=== PATIENT | female | born 1960 | race Caucasian/White ===

== ENCOUNTER → 2023-12-14 12:43 | Outpatient (REF) | payer BC, SELFPAY | LOC: HWRAD 12:43 | PROVIDERS: ATTENDING PHYSICIAN Physician Assistant; REFERRING PHYSICIAN Orthopaedic Surgery Hand Surgery | DX: M79.644 Pain in right finger(s) (principal); W19.XXXA Unspecified fall, initial encounter | CPT/HCPCS: 73110; 73140 ==